=== PATIENT | female | born 1990 | race Caucasian/White ===

== ENCOUNTER 2021-06-28 10:54 | Inpatient (IN) ==
[2021-06-28] MEDS ORDERED: Ringers Solution, Lactated 1,000 ML IVC SCH (11:30)
[2021-06-28 11:48] LABS: Basophils # 0.1 K/mcL (0.0-0.2); Basophils % 0.4 %; Eosinophils # 0.3 K/mcL (0.0-0.6); Eosinophils % 2.2 %; Hematocrit 40.5 % (35.3-44.9); Immature Granulocytes % 0.6 % (0-4); Lymphocytes # 2.4 K/mcL (0.6-4.6); Lymphocytes % 15.4 %; Mean Corpuscular HGB Conc 34.6 g/dL (31.6-35.5); Mean Corpuscular Volume 92.5 fL (83.0-100.0); Mean Platelet Volume 10.8 fL (9.4-12.4); Monocytes # 0.6 K/mcL (0.0-1.3); Monocytes % 4.1 %; Platelet Count 306 K/mcL (140-400); Red Blood Count 4.38 M/mcL (3.82-4.97); Segmented Neutrophils % 77.3 %; White Blood Count 15.5 K/mcL (4.3-11.1)
[2021-06-28 12:21] LABS: Influenza A PCR Negative (Negative); Influenza B PCR Negative (Negative); Resp. Syncytial Virus PCR Negative (Negative)
[2021-06-28 13:05] LABS: SARS-CoV-2 by PCR (In House) Negative (Negative)
[2021-06-28 13:32] LABS: Amphetamine Screen,Urine Negative ng/mL (Cutoff=1000); Barbiturate Screen,Urine Negative ng/mL (Cutoff=200); Benzodiazepines Screen,Urine Negative ng/mL (Cutoff=200); Cannabinoid Screen,Urine Positive ng/mL (Cutoff = 50); Cocaine Screen,Urine Negative ng/mL (Cutoff= 300); Opiate Screen,Urine Negative ng/mL (Cutoff=300); Phencyclidine Screen,Urine Negative ng/mL (Cutoff=25)
[2021-06-29] MEDS ORDERED: Metoclopramide 10 MG/2 ML VIAL ONE (01:12)
[2021-06-29] MEDS ORDERED: Metoclopramide 10 MG/2 ML VIAL IVP ONE (01:12)
[2021-06-29] MEDS ORDERED: Famotidine 20 MG/2 ML VIAL IVP ONE (01:12)
[2021-06-29] MEDS ORDERED: *HR* Morphine Sulfate/PF 10 MG/10 ML AMPUL ONE (01:44)
[2021-06-29] MEDS ORDERED: *HR* FentaNYL (PF) 100 MCG/2 ML VIAL ONE (01:44)
[2021-06-29] MEDS ORDERED: Ondansetron 4 MG/2 ML VIAL ONE (01:45)
[2021-06-29] MEDS ORDERED: CeFAZolin 2,000 MG/120 ML BAG IVPB ONE (02:00)
[2021-06-29] MEDS ORDERED: Ketorolac 30 MG/ML VIAL ONE (02:22)
[2021-06-29] MEDS ORDERED: Ringers Solution, Lactated 1,000 ML IVC SCH (05:29)
[2021-06-29] MEDS ORDERED: Simethicone 80 MG TAB.CHEW PO PRN (05:29)
[2021-06-29] MEDS ORDERED: Oxytocin 20 units/ LR 1000 mL 20 UNIT/1,000 ML BAG IVC SCH (05:29)
[2021-06-29] MEDS ORDERED: Metoclopramide 10 MG/2 ML VIAL IVP PRN (05:29)
[2021-06-29] MEDS ORDERED: *HR* OxyCODONE Immed Rel 5 MG TABLET PO PRN (05:29)
[2021-06-29] MEDS ORDERED: Ondansetron 4 MG/2 ML VIAL IVP PRN (05:29)
[2021-06-29] MEDS: Acetaminophen 325 MG TABLET PO SCH ×3 (08:48→21:02)
[2021-06-29] MEDS: Ibuprofen 600 MG TABLET PO SCH ×3 (08:48→21:02)
[2021-06-29] MEDS: Prenatal Vit/FA 1 EACH TABLET PO SCH (08:49)
[2021-06-30] MEDS: Ibuprofen 600 MG TABLET PO SCH ×2 (03:13→08:12)
[2021-06-30] MEDS: Acetaminophen 325 MG TABLET PO SCH ×2 (03:14→08:12)
[2021-06-30 03:55] LABS: Basophils # 0.1 K/mcL (0.0-0.2); Basophils % 0.5 %; Eosinophils # 0.4 K/mcL (0.0-0.6); Eosinophils % 2.7 %; Hematocrit 38.8 % (35.3-44.9); Hemoglobin 13.2 g/dL (11.5-15.4); Immature Granulocytes % 0.4 % (0-4); Lymphocytes # 2.4 K/mcL (0.6-4.6); Lymphocytes % 17.4 %; Mean Corpuscular Hemoglobin 31.7 pg (28.0-33.3); Mean Corpuscular Volume 93.3 fL (83.0-100.0); Mean Platelet Volume 10.9 fL (9.4-12.4); Monocytes # 0.7 K/mcL (0.0-1.3); Monocytes % 5.2 %; Neutrophils # 10.3 K/mcL (1.6-8.9); Platelet Count 248 K/mcL (140-400); Red Blood Count 4.16 M/mcL (3.82-4.97); Red Cell Distribution Width 13.1 % (11.5-14.5); Segmented Neutrophils % 73.8 %
[2021-06-30 08:08] VITALS: BP 109/65; PULSE 82; TEMP 98.4; O2SAT 96
[2021-06-30] MEDS: Prenatal Vit/FA 1 EACH TABLET PO SCH (08:11)
== END 2021-06-30 16:30 | disposition home or self-care (01) | DRG 540 ==
LOC: 1NENULAB → OBSVTOIN 10:54 → 1NENULAB 19:07 → 1NENUOBS 06-29 05:29
PROVIDERS: ADMIT Obstetrics & Gynecology; ATTEND Obstetrics & Gynecology